=== PATIENT | female | born 1970 | race Caucasian/White ===

== ENCOUNTER 2024-05-23 16:34 | Emergency (ER) | payer OTHER, SELFPAY ==
[2024-05-23 16:39] VITALS: BP 130/80; PULSE 86; TEMP 36.8; O2SAT 99; BMI 44.2
[2024-05-23 16:47] LABS: Glucometer 84 mg/dL (74-106)
--- NOTE | 2024-05-23 17:14 | ECG_ITS ---
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
[2024-05-23 17:28] LABS: Basophils Absolute Auto 0.1 10^3/uL (0.0-0.1); Basophils Percent Auto 0.9 % (0.2-2.0); Eosinophils Absolute Auto 0.1 10^3/uL (0.0-0.7); Eosinophils Percent Auto 1.7 % (0.9-7.0); Hematocrit 43.9 % (36.0-48.0); Hemoglobin 14.9 g/dL (12.0-16.0); Immature Granulocytes Abs Auto 0.01 10^3/uL (0.00-0.03); Immature Granulocytes Pct Auto 0.2 % (0.0-0.5); Lymphocytes Absolute Auto 1.7 10^3/uL (1.2-3.8); Lymphocytes Percent Auto 31.4 % (20.5-60.0); Mean Corpuscular HGB Conc 33.9 g/dL (29.9-35.2); Mean Corpuscular Volume 88.5 fL (81.0-99.0); Mean Platelet Volume 10.4 fL (9.5-13.5); Monocytes Absolute Auto 0.4 10^3/uL (0.3-0.8); Monocytes Percent Auto 7.8 % (1.7-12.0); Neutrophils Absolute Auto 3.1 10^3/uL (1.4-6.5); Platelet Count 192 10^3/uL (150-450); Red Blood Count 4.96 10^6/uL (4.20-5.40); Red Cell Distribution Width 12.7 % (11.0-15.0); White Blood Count 5.3 10^3/uL (4.0-11.0)
[2024-05-23] MEDS: ONDANSETRON 4 MG RAPDIS TABLET SL (17:29)
[2024-05-23 17:37] LABS: Anion Gap 14.6; BUN Creatinine Ratio 13.3; Calcium 9.2 mg/dL (8.5-10.1); Carbon Dioxide 23.3 mmol/L (21.0-32.0); Chloride 101 mmol/L (98-107); Estimated GFR (African America >60 (>=60 mL/min/1.73m^2); Estimated GFR (Non-African Ame 50 (>=60 mL/min/1.73m^2); Glucose 91 mg/dL (74-106); Potassium 3.9 mmol/L (3.5-5.1); Sodium 135 mmol/L (136-145)
[2024-05-23 17:45] LABS: Troponin I High Sensitivity 4.2 pg/mL (4.0-51.3)
[2024-05-23 18:03] VITALS: BP 128/78; PULSE 83; O2SAT 99
--- NOTE | 2024-05-23 18:03 | ED_ITS ---
HPI HPI - General Adult General Chief complaint: Dental/Oral Stated complaint: Dental pain Time Seen by Provider: 05/23/24 17:01 Source: patient Mode of arrival: walk-in Limitations: no limitations History of Present Illness HPI narrative: 53-year-old female to the emergency department with chief complaint of feeling generally unwell and right-sided facial pain. Patient reports that symptoms began a few days ago. She was seen at [facility] emergency department 05/21 for this. She reports that she had a CT scan done that showed a periapical abscess. Patient reports she has been taking the clindamycin but is upset her stomach. She reports she has a metallic taste in her mouth. She reports it is difficult for her to eat or drink and she fears she is becoming dehydrated. She denies any fever, sweats, chills. She reports occasional headaches. She has been taking for her normal scheduled oxycodone at home for the pain. Related Data Home Medications ?Medication ?Instructions ?Recorded ?Confirmed clindamycin HCl 150 mg capsule 450 mg PO Q8H 05/23/24 05/23/24 Previous Rx's ?Medication ?Instructions ?Recorded chlorhexidine gluconate 0.12 % 15 ml buccal BID #300 mL 05/23/24 mouthwash (Paroex Oral Rinse) ondansetron 4 mg disintegrating 4 mg PO Q8H PRN nausea and 05/23/24 tablet vomiting 4 days #16 tabs Allergies Allergy/AdvReac Type Severity Reaction Status Date / Time amoxicillin Allergy Severe Hives Verified 05/23/24 16:49 cefaclor [From Ceclor] Allergy Severe Hives Verified 05/23/24 16:49 cephalexin [From Keflex] Allergy Severe Hives Verified 05/23/24 16:49 codeine Allergy Severe Hives Verified 05/23/24 16:49 fentanyl Allergy Severe Rash Verified 05/23/24 16:49 Latex, Natural Rubber Allergy Severe Rash Verified 05/23/24 16:49 ibuprofen [From Motrin] AdvReac Severe kindey Verified 05/23/24 16:49 function Penicillins AdvReac Severe Hives Verified 05/23/24 16:49 Opioid HPI Opioid Management Most Recent Opioid Data: Last Pain Scale 7 05/23/24 17:41 Last ED Pain Assessment 05/23/24 17:41 Review of Systems ROS Status of ROS 10 or more systems reviewed and unremark able except as noted in history and below PFSH PFSH Social History Little interest or pleasure in doing things: not at all Feeling down, depressed, or hopeless: not at all Exam Narrative Exam Narrative: VITALS: I have reviewed the triage vital signs. GENERAL: Morbidly obese adult female lying on bed underneath an [facility] fleece blanket NEURO: Alert and oriented. Moves all extremities. Face is symmetric and expressive. EYES: PERRL. No scleral icterus or conjunctival injection. No discharge. HENT: Normocephalic, atraumatic. Hearing is grossly intact. Nares grossly patent and without discharge. Mucous membranes moist. Generally poor dentition. No drainable abscess. No trismus. No crepitus or swelling to the neck or face. NECK: No JVD. Patient moves neck without restriction. CARDIO: Rhythm regular. Normal rate. No murmur, rub, or gallop. Pulses equal b ilaterally in the upper and lower extremity. No lower extremity edema. PULM: Lungs clear to auscultation in all rodriguez. No wheezes, rales, or rhonchi. No conversational dyspnea. No splinting, stridor, or accessory muscle use. EXTREMITIES: Symmetric muscle bulk. No joint swelling. No clubbing, cyanosis, or deformity. SKIN: Warm and dry. Normal turgor. No rash or lesions appreciated. PSYCH: Mood, affect, and interaction is appropriate to the setting. Constitutional Vital Signs, click to edit/add: Last Vital Signs Temp 98.3 F 05/23/24 16:39 Pulse 86 05/23/24 16:39 Resp 16 05/23/24 16:39 BP 130/80 05/23/24 16:39 Pulse Ox 99 05/23/24 16:39 O2 Del Method Room Air 05/23/24 16:39 Course Vital Signs Vital signs: Vital Signs Temperature 98.3 F 05/23/24 16:39 Pulse Rate 86 05/23/24 16:39 Respiratory Rate 16 05/23/24 16:39 Blood Pressure 130/80 05/23/24 16:39 Pulse Oximetry 99 05/23/24 16:39 Oxygen Delivery Method Room Air 05/23/24 16:39 Temperature 98.3 F 05/23/24 16:39 Pulse Rate 86 05/23/24 16:39 Respiratory Rate 16 05/23/24 16:39 Blood Pressure 130/80 05/23/24 16:39 Pulse Oximetry 99 05/23/24 16:39 Oxygen Delivery Method Room Air 05/23/24 16:39 Medical Decision Making MDM Narrative Medical decision making narrative: 53-year-old female to the emergency department with chief complaint of dental pain. Vital stable, the patient is afebrile. Exam is unremarkable. She has poor dentition but there is no specific dental abscess or lesions apparent on exam. I discussed with the patient that ultimately she needs to see dentistry. She was worked up to an appropriate amount at [facility] already. Patient would like labs performed. CBC and chemistry are unremarkable. Creatinine today is 1.13, she was 1.12 on her last set of labs in September. No evidence of dehydration or other acute process. Troponin is negative. EKG without evidence of ischemia. Discussed with the patient the importance of following up with dentistry as previously directed. She is prescribed Zofran for her nausea. She requested a Peridex prescription. Return precautions were discussed. All questions were answered. The patient was discharged home. Medical Records Medical records reviewed: Yes I reviewed the patient's medical records Lab Data Lab results reviewed: Yes I reviewed the patient's lab results Labs: Lab Results 05/23/24 05/23/24 Range/Units 16:44 17:20 WBC 5.3 (4.0-11.0) 10^3/uL RBC 4.96 (4.20-5.40) 10^6/uL Hgb 14.9 (12.0-16.0) g/dL Hct 43.9 (36.0-48.0) % MCV 88.5 (81.0-99.0) fL MCH 30.0 (26.7-34.0) pg MCHC 33.9 (29.9-35.2) g/dL RDW 12.7 (11.0-15.0) % Plt Count 192 (150-450) 10^3/uL MPV 10.4 (9.5-13.5) fL Neut % (Auto) 58.0 (43.0-75.0) % Lymph % (Auto) 31.4 (20.5-60.0) % Petroleum % (Auto) 7.8 (1.7-12.0) % Eos % (Auto) 1.7 (0.9-7.0) % Baso % (Auto) 0.9 (0.2-2.0) % Neut # (Auto) 3.1 (1.4-6.5) 10^3/uL Lymph # (Auto) 1.7 (1.2-3.8) 10^3/uL Petroleum # (Auto) 0.4 (0.3-0.8) 10^3/uL Eos # (Auto) 0.1 (0.0-0.7) 10^3/uL Baso # (Auto) 0.1 (0.0-0.1) 10^3/uL Abs Immat Gran (auto) 0.01 (0.00-0.03) 10^3/uL Imm/Tot Granulo (auto) 0.2 (0.0-0.5) % Sodium 135 L (136-145) mmol/L Potassium 3.9 (3.5-5.1) mmol/L Chloride 101 (98-107) mmol/L Carbon Dioxide 23.3 (21.0-32.0) mmol/L Anion Gap 14.6 BUN 15.0 (7.0-18.0) mg/dL Creatinine 1.13 H (0.55-1.02) mg/dL Est GFR ( Amer) >60 (>=60 mL/min/1.73m^2) Est GFR (Non-Af Amer) 50 L (>=60 mL/min/1.73m^2) BUN/Creatinine Ratio 13.3 Glucose 91 (74-106) mg/dL Calcium 9.2 (8.5-10.1) mg/dL Troponin I High Sens 4.2 (4.0-51.3) pg/mL POC Glucose 84 (74-106) mg/dL ECG Data Attestation: I personally reviewed and interpreted this ECG as follows: (Normal sinus rhythm at a rate of 70. No STEMI. Normal QTc.) Discharge Plan Discharge Chief Complaint: Dental/Oral Clinical Impression: Dental abscess Patient Disposition: Home, Self-Care Time of Disposition Decision: 17:57 Condition: Good Mode of Transportation: Private Vehicle Prescriptions / Home Meds: New ondansetron 4 mg tablet,disintegrating 4 mg PO Q8H PRN (Reason: nausea and vomiting) 4 Days Qty: 16 0RF chlorhexidine gluconate [Paroex Oral Rinse] 0.12 % mouthwash 15 ml buccal BID Qty: 300 0RF No Action clindamycin HCl 150 mg capsule 450 mg PO Q8H Print Language: Bhutanese Instructions: Dental Abscess (ED) Additional Instructions: Call around to dental offices and arrange to be seen within the next week. Referrals: Leah Freed, LOGGING EQUIPMENT OPERATOR [Primary Care Provider] - 1 week
== END 2024-05-23 18:04 | disposition home or self-care (01) ==
PROVIDERS: Emergency Provider Student in an Organized Health Care Education/Training Program; PCP Nurse Practitioner
DX: K08.89 Other specified disorders of teeth and supporting structures (principal); K04.7 Periapical abscess without sinus
CPT/HCPCS: 36415; 80048; 84484; 85025; 93005; 99285; Q0162

== ENCOUNTER 2024-08-28 12:01 | Emergency (ER) | payer OTHER, SELFPAY ==
[2024-08-28 12:08] VITALS: BP 138/75; PULSE 82; TEMP 37; O2SAT 100; BMI 44.2
--- NOTE | 2024-08-28 12:36 | US_ITS ---
[address] [address] Patient Name: KEELY PA MRN: [id number] date: 1970 Sex: F Assigned Patient Location: ER Current Patient Location: ER Accession/Order Number: [id number] Exam Date: 08/28/2024 13:00 Report Date: 08/28/2024 13:46 At the request of: LUCRETIA MEDRANO Procedure: US right upper quadrant PROCEDURE: US right upper quadrant, 08/28/2024 1:00 PM EST CLINICAL INDICATIONS: Right upper quadrant epigastric abdominal and back pain, symptoms for one day, nausea, vomiting COMPARISON: CT abdomen and pelvis 09/19/2022 TECHNIQUE: Right upper quadrant abdominal sonogram, grayscale, color evaluation. FINDINGS: Visualized pancreas is unremarkable. No ductal dilatation is seen. Portions of head and tail segment obscured. Coarsened hepatic echotexture, increased echogenicity of hepatic parenchyma seen. Right lobe is enlarged up to 19 cm craniocaudally. Visualized portal vein patent, antegrade phasic flow, normal velocity. Visualized hepatic veins patent with antegrade flow. Contour is smooth. Focal abnormality not evident. Common bile duct is dilated up to 1.0 cm. Gallbladder is prominent up to 12.5 cm longitudinally. Calculus wall thickening localized pain is not evident. Right kidney is normal in morphology. It measures 8.7 x 6.0 x 5.5 cm. No hydronephrosis or shadowing calculus is identified. Focal renal abnormality is not demonstrated. No ascites. US/US right upper quadrant IMPRESSION: 1. Hepatomegaly, moderate hepatic steatosis 2. Gallbladder distention. There is no gallbladder calculus, wall thickening or localized pain. Common bile duct dilated 1.0 cm. Etiology undetermined. Magnetic resonance cholangiopancreatography may be helpful in initial characterization. 3. Mild right renal atrophy, 8.7 cm. Focal abnormality, hydronephrosis or calculus is not evident. Electronically authenticated by: TRACEY BUCK Date: 08/28/2024 13:46
--- NOTE | 2024-08-28 12:36 | ECG_ITS ---
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
--- NOTE | 2024-08-28 12:38 | ED_ITS ---
HPI HPI - General Adult General Chief complaint: Abdominal Pain Stated complaint: LOWER EXTREMITY Time Seen by Provider: 08/28/24 12:32 Mode of arrival: walk-in History of Present Illness HPI narrative: 53-year-old female presents for nausea vomiting and abdominal pain. She thinks it might be her gallbladder. It started at 3:00 this morning and the pain in her abdomen is in the right upper quadrant. It is moderate to severe and there was no trauma. She has not had a fever. No hematemesis or blood in her stool. Related Data Home Medications ?Medication ?Instructions ?Recorded ?Confirmed clindamycin HCl 150 mg capsule 450 mg PO Q8H 05/23/24 05/23/24 Previous Rx's ?Medication ?Instructions ?Recorded chlorhexidine gluconate 0.12 % 15 ml buccal BID #300 mL 05/23/24 mouthwash (Paroex Oral Rinse) ondansetron 4 mg disintegrating 4 mg PO Q8H PRN nausea and 05/23/24 tablet vomiting 4 days #16 tabs Allergies Allergy/AdvReac Type Severity Reaction Status Date / Time amoxicillin Allergy Severe Hives Verified 05/23/24 16:49 cefaclor (From Ceclor) Allergy Severe Hives Verified 05/23/24 16:49 cephalexin (From Keflex) Allergy Severe Hives Verified 05/23/24 16:49 codeine Allergy Severe Hives Verified 05/23/24 16:49 fentanyl Allergy Severe Rash Verified 05/23/24 16:49 Latex, Natural Rubber Allergy Severe Rash Verified 05/23/24 16:49 ibuprofen (From Motrin) AdvReac Severe kindey Verified 05/23/24 16:49 function Penicillins AdvReac Severe Hives Verified 05/23/24 16:49 Opioid HPI Opioid Management Most Recent Opioid Data: Last Pain Scale 10 08/28/24 13:52 08/28/24 Last MAR Pain Assessment 08/28/24 13:52 Review of Systems ROS Narrative A ten point review of systems is negative except as noted above. PFSH PFSH Social History Little interest or pleasure in doing things: not at all Feeling down, depressed, or hopeless: not at all Exam Narrative Exam Narrative: Nurses note and vital signs reviewed and patient is not hypoxic. General: The patient appears uncomfortable and in no apparent distress. Skin: Warm, dry, no pallor noted. There is no rash noted. Head: Normocephalic, atraumatic Eye: Normal conjunctiva, no drainage Ears, Nose, Mouth, and Throat: oral mucosa is moist. Nares patent. Cardiovascular: Regular Rate and Rhythm Respiratory: Patient is in no distress, no accessory muscle use, lungs are clear to auscultation, no wheezing, rales or rhonchi Back: non-tender GI: Obese, tenderness in the upper abdomen, particular the right upper quadrant Musculoskeletal: The patient has no evidence of calf tenderness, no pitting edema, symmetrical pulses noted bilaterally Neurological: A&O, normal speech Psychiatric: Cooperative Constitutional Vital Signs, click to edit/add: Last Vital Signs Temp 98.6 F 08/28/24 12:08 Pulse 82 08/28/24 12:08 Resp 20 08/28/24 12:08 BP 138/75 08/28/24 12:08 Pulse Ox 100 08/28/24 12:08 O2 Del Method Room Air 08/28/24 12:08 Course Vital Signs Vital signs: Vital Signs Temperature 98.6 F 08/28/24 12:08 Pulse Rate 82 08/28/24 12:08 Respiratory Rate 20 08/28/24 12:08 Blood Pressure 138/75 08/28/24 12:08 Pulse Oximetry 100 08/28/24 12:08 Oxygen Delivery Method Room Air 08/28/24 12:08 Temperature 98.6 F 08/28/24 12:08 Pulse Rate 82 08/28/24 12:08 Respiratory Rate 20 08/28/24 12:08 Blood Pressure 138/75 08/28/24 12:08 Pulse Oximetry 100 08/28/24 12:08 Oxygen Delivery Method Room Air 08/28/24 12:08 Medical Decision Making MDM Narrative Medical decision making narrative: A small bowel obstruction was identified on her CAT scan. Gallbladder ultrasound shows a large gallbladder but no wall thickening or evidence of acute cholecystitis. NG tube was ordered but patient refused. I spoke to the general surgeon at [facility] who accepts the patient. The plan at that point was to speak to the hospitalist for transfer and admission there. At this point the patient decided to leave AGAINST MEDICAL ADVICE. I have explained that she is already excepted there and that we need to follow protocol for appropriate transfer. She refuses to stay and she states she is going to drive there herself. She is fully able to make medical decisions for herself. Differential Diagnosis Differential Diagnosis: Acute cholecystitis, bowel obstruction, colitis, duodenitis, constipation Lab Data Lab results reviewed: Yes I reviewed the patient's lab results Labs: Lab Results 08/28/24 Range/Units 12:23 WBC 6.0 (4.0-11.0) 10^3/uL RBC 5.34 (4.20-5.40) 10^6/uL Hgb 15.9 (12.0-16.0) g/dL Hct 47.1 (36.0-48.0) % MCV 88.2 (81.0-99.0) fL MCH 29.8 (26.7-34.0) pg MCHC 33.8 (29.9-35.2) g/dL RDW 13.0 (11.0-15.0) % Plt Count 245 (150-450) 10^3/uL MPV 11.1 (9.5-13.5) fL Neut % (Auto) 60.0 (43.0-75.0) % Lymph % (Auto) 30.5 (20.5-60.0) % [place] % (Auto) 6.3 (1.7-12.0) % Eos % (Auto) 2.2 (0.9-7.0) % Baso % (Auto) 0.8 (0.2-2.0) % Neut # (Auto) 3.6 (1.4-6.5) 10^3/uL Lymph # (Auto) 1.8 (1.2-3.8) 10^3/uL Cecil # (Auto) 0.4 (0.3-0.8) 10^3/uL Eos # (Auto) 0.1 (0.0-0.7) 10^3/uL Baso # (Auto) 0.1 (0.0-0.1) 10^3/uL Abs Immat Gran (auto) 0.01 (0.00-0.03) 10^3/uL Imm/Tot Granulo (auto) 0.2 (0.0-0.5) % Sodium 140 (136-145) mmol/L Potassium 4.0 (3.5-5.1) mmol/L Chloride 104 (98-107) mmol/L Carbon Dioxide 25.6 (21.0-32.0) mmol/L Anion Gap 14.4 BUN 16.0 (7.0-18.0) mg/dL Creatinine 1.17 H (0.55-1.02) mg/dL Est GFR ( Amer) 59 L (>=60 mL/min/1.73m^2) Est GFR (Non-Af Amer) 48 L (>=60 mL/min/1.73m^2) BUN/Creatinine Ratio 13.7 Glucose 123 H (74-106) mg/dL Calcium 9.8 (8.5-10.1) mg/dL Total Bilirubin 0.7 (0.2-1.0) mg/dL Direct Bilirubin 0.1 (0.0-0.2) mg/dL AST 22 (15-37) U/L ALT 18 (14-59) U/L Alkaline Phosphatase 108 (46-116) U/L Total Protein 8.4 H (6.4-8.2) g/dL Albumin 4.4 (3.4-5.0) g/dL Globulin 4.0 g/dL Albumin/Globulin Ratio 1.1 Amylase 77 (25-115) U/L Lipase 62.0 (16.0-77.0) U/L Imaging Data CT scan - abdomen: Radiologist's impression: ITS Impressions Upper Quadrant Ultrasound 08/28/24 12:36 IMPRESSION: 1. Hepatomegaly, moderate hepatic steatosis 2. Gallbladder distention. There is no gallbladder calculus, wall thickening or localized pain. Common bile duct dilated 1.0 cm. Etiology undetermined. Magnetic resonance cholangiopancreatography may be helpful in initial characterization. 3. Mild right renal atrophy, 8.7 cm. Focal abnormality, hydronephrosis or calculus is not evident. Electronically authenticated by: TRACEY BUCK Date: 08/28/2024 13:46 Abdomen/Pelvis CT 08/28/24 13:51 IMPRESSION: Fluid filling of proximal small bowel loops with rapid transition. Consider a developing small bowel obstruction Electronically authenticated by: SARA TROTTER Date: 08/28/2024 15:11 ECG Data Attestation: I personally reviewed and interpreted this ECG as follows: (EKG on my interpretation shows sinus rhythm without acute change and artifact present) Discharge Plan Discharge Stand Alone Forms: Portal Instructions Chief Complaint: Abdominal Pain Clinical Impression: SBO (small bowel obstruction) Patient Disposition: Left Against Medical Advice Time of Disposition Decision: 16:23 Condition: Good Mode of Transportation: Private Vehicle Prescriptions / Home Meds: No Action clindamycin HCl 150 mg capsule 450 mg PO Q8H ondansetron 4 mg tablet,disintegrating 4 mg PO Q8H PRN (Reason: nausea and vomiting) 4 Days Qty: 16 0RF chlorhexidine gluconate [Paroex Oral Rinse] 0.12 % mouthwash 15 ml buccal BID Qty: 300 0RF Print Language: Indonesian Instructions: Bowel Obstruction (ED) Referrals: Leah Freed CLOTH PRINTING UTILITY WORKER [Primary Care Provider] - 1 week
[2024-08-28 12:47] LABS: Basophils Absolute Auto 0.1 10^3/uL (0.0-0.1); Basophils Percent Auto 0.8 % (0.2-2.0); Eosinophils Absolute Auto 0.1 10^3/uL (0.0-0.7); Eosinophils Percent Auto 2.2 % (0.9-7.0); Hematocrit 47.1 % (36.0-48.0); Hemoglobin 15.9 g/dL (12.0-16.0); Immature Granulocytes Abs Auto 0.01 10^3/uL (0.00-0.03); Immature Granulocytes Pct Auto 0.2 % (0.0-0.5); Lymphocytes Absolute Auto 1.8 10^3/uL (1.2-3.8); Lymphocytes Percent Auto 30.5 % (20.5-60.0); Mean Corpuscular HGB Conc 33.8 g/dL (29.9-35.2); Mean Corpuscular Hemoglobin 29.8 pg (26.7-34.0); Mean Corpuscular Volume 88.2 fL (81.0-99.0); Mean Platelet Volume 11.1 fL (9.5-13.5); Monocytes Absolute Auto 0.4 10^3/uL (0.3-0.8); Monocytes Percent Auto 6.3 % (1.7-12.0); Neutrophils Absolute Auto 3.6 10^3/uL (1.4-6.5); Platelet Count 245 10^3/uL (150-450); Red Blood Count 5.34 10^6/uL (4.20-5.40)
[2024-08-28] MEDS: ONDANSETRON PF 4 MG/2 ML VIAL IV (12:48)
[2024-08-28] MEDS: MORPHINE SULFATE 4 MG/ML VIAL IV (12:48)
[2024-08-28] MEDS: 0.9 % SODIUM CHLORIDE 1,000 ML 1000 ML IV (12:49)
[2024-08-28 12:58] LABS: Amylase 77 U/L (25-115)
[2024-08-28 13:07] LABS: Alanine Aminotransferase 18 U/L (14-59); Albumin Globulin Ratio 1.1; Albumin Level 4.4 g/dL (3.4-5.0); Alkaline Phosphatase 108 U/L (46-116); Anion Gap 14.4; Aspartate Amino Transferase 22 U/L (15-37); BUN Creatinine Ratio 13.7; Bilirubin Direct 0.1 mg/dL (0.0-0.2); Bilirubin Total 0.7 mg/dL (0.2-1.0); Calcium 9.8 mg/dL (8.5-10.1); Carbon Dioxide 25.6 mmol/L (21.0-32.0); Chloride 104 mmol/L (98-107); Estimated GFR (African America 59 (>=60 mL/min/1.73m^2); Estimated GFR (Non-African Ame 48 (>=60 mL/min/1.73m^2); Glucose 123 mg/dL (74-106); Sodium 140 mmol/L (136-145); Total Protein 8.4 g/dL (6.4-8.2)
--- NOTE | 2024-08-28 13:51 | CT_ITS ---
[address] [address] Patient Name: KEELY PA MRN: [id number] date: 1970 Sex: F Assigned Patient Location: ER Current Patient Location: ER Accession/Order Number: [id number] Exam Date: 08/28/2024 14:34 Report Date: 08/28/2024 15:11 At the request of: LUCRETIA MEDRANO Procedure: CT abdomen pelvis w con EXAMINATION: CT abdomen pelvis w con HISTORY: Abdominal pain COMPARISON: 09/19/2022 TECHNIQUE: CT images were created with IV contrast. Axial, Coronal, and Sagittal images. Dose reduction techniques were achieved by using automated exposure control and/or adjustment of mA and/or kV according to patient size and/or use of iterative reconstruction technique. FINDINGS: LUNG BASES: No visible pulmonary or pleural disease. LIVER: Diffuse hypoattenuation consistent with hepatic steatosis. No focal mass BILIARY: No visible dilatation or calcification. PANCREAS: No lesion, fluid collection, ductal dilatation, or atrophy. SPLEEN: No enlargement or focal lesion. ADRENALS: No mass or enlargement. KIDNEYS: No mass, obstruction, or calcification. BOWEL/MESENTERY: No visible mass, obstruction, or bowel wall thickening. Mild asymmetric fluid filling of small bowel loops with rapid transition noted in the right lower quadrant, axial image 103 and stool sign in the distal dilated bowel loop axial image 110 AORTA/VASCULAR: No aneurysm or dissection. RETROPERITONEUM: No mass or adenopathy. LYMPH NODES: No adenopathy. URINARY BLADDER: No visible focal wall thickening, lesion, or calculus. PELVIC ORGANS: Hysterectomy ABDOMINAL WALL: No mass or hernia. BONES: No bony lesion or fracture. OTHER: Negative. CT/CT abdomen pelvis w con IMPRESSION: Fluid filling of proximal small bowel loops with rapid transition. Consider a developing small bowel obstruction Electronically authenticated by: SARA TROTTER Date: 08/28/2024 15:11
[2024-08-28] MEDS: HYDROMORPHONE HCL 1 MG/ML CARTRIDGE IV (13:52)
== END 2024-08-28 16:27 | disposition left against medical advice (07) ==
PROVIDERS: Emergency Provider Emergency Medicine; PCP Nurse Practitioner
DX: K56.609 Unspecified intestinal obstruction, unspecified as to partial versus complete obstruction (principal); R10.11 Right upper quadrant pain; Z53.29 Procedure and treatment not carried out because of patient's decision for other reasons; Z90.710 Acquired absence of both cervix and uterus
CPT/HCPCS: 36415; 74177; 76705; 80048; 80076; 82150; 83690; 85025; 93005; 96361; 96374; 96375; 99285; J1171; J2270; J2405; Q9967